=== PATIENT | male | born 1970 | race Caucasian/White ===

== ENCOUNTER 2021-06-09 13:20 | Emergency (ER) | payer OTHER ==
[2021-06-09 13:52] LABS: BASOPHIL 0.8 % (0-2); EOSINOPHIL 1.6 % (0-5); HCT 45.7 % (42.0-52.0); HGB 15.3 g/dl (13.2-18.0); LYMPHOCYTE 27.9 % (15-48); MCH 30.5 pg (25.0-31.0); MCHC 33.5 g/dL (32.0-36.0); MCV 91.2 fL (78.0-100.0); MONOCYTE 7.1 % (0-12); MPV 10.6 fL (6.0-9.5); NEUTROPHIL 62.2 % (41-80); NRBC 0; PLT 243 K/uL (150-400); RBC 5.01 M/uL (4.70-6.00); RDW 13.5 % (11.5-14.0); WBC 7.1 K/uL (4.0-10.5)
[2021-06-09 14:01] LABS: INR 1.06 (0.9-1.2); PROTHROMBIN TIME 13.2 SECONDS (11.8-13.4); PTT 31.5 SECONDS (24.4-34.7)
[2021-06-09 14:02] LABS: D-DIMER < 0.27 ug/mLFEU (0.00-0.41)
[2021-06-09 14:07] LABS: ALBUMIN 4.2 g/dL (3.4-5.0); BILIRUBIN - TOTAL 0.4 mg/dL (0.2-1.0); BUN/CREAT RATIO (CALC) 17.3 RATIO; CREATININE 0.98 mg/dL (0.67-1.17); POTASSIUM 4.3 mmol/L (3.5-5.1); TOTAL PROTEIN 8.2 g/dL (6.4-8.2)
[2021-06-09] MEDS ORDERED: MEDROL 4MG DOSEP4 MG PO (16:57)
[2021-06-09] MEDS ORDERED: CYCLOBENZAPRINE10 MG PO (16:57)
== END 2021-06-09 17:10 | disposition home or self-care (01) ==
LOC: FER 13:20
PROVIDERS: Nurse Practitioner Family
DX: S29.011A Strain of muscle and tendon of front wall of thorax, initial encounter (principal); X50.0XXA Overexertion from strenuous movement or load, initial encounter; X50.1XXA Overexertion from prolonged static or awkward postures, initial encounter; Y93.89 Activity, other specified
CPT/HCPCS: 36415; 71045; 80053; 84484; 85025; 85379; 85610; 85730; 93005; J1100; J1885